=== PATIENT | male | born 1980 | race Two or more races ===

== ENCOUNTER 2019-02-03 05:13 | Emergency (ER) | payer SELFPAY ==
[~2019-02-03] VITALS: Ht 165.1 cm; Wt 65.8 kg
[2019-02-03 05:31] VITALS: BP 114/70
[2019-02-03 05:40] LABS: BILIRUBIN,URINE NEGATIVE (NEG); CLARITY,URINE CLEAR; COLOR,URINE YELLOW; NITRITE,URINE NEGATIVE (NEG); PROTEIN,URINE NEGATIVE (NEG-TRACE); UROBILINOGEN,URINE 0.2 mg/dL (0.2 mg/dL)
[2019-02-03] MEDS ORDERED: IBUP-985 PO (05:40)
--- NOTE | 2019-02-03 05:50 | PHYS DOC ---
Adult General Chief Complaint Chief Complaint: GROIN PAIN HPI HPI Patient is a 38 year old male presenting with groin pain 2-3 days and when he was walking no definite sugar that he knows about it feels pulled muscle in the medial aspect of his right thigh worse with walking and movement. He also does feel some pain in the back of his leg as well no dysuria no bumps or lumps in the groin Review of Systems Review of Systems Constitutional: Denies fever or chills [] Eyes: Denies change in visual acuity, redness, or eye pain [] HENT: Denies nasal congestion or sore throat [] Respiratory: Denies cough or shortness of breath [] Cardiovascular: No additional information not addressed in HPI [] GI: Denies abdominal pain, nausea, vomiting, bloody stools or diarrhea [] : Denies dysuria or hematuria [] Neurologic: Denies headache, focal weakness or sensory changes [] Endocrine: Denies polyuria or polydipsia [] All other systems were reviewed and found to be within normal limits, except as documented in this note. Current Medications Current Medications Current Medications Medications (Trade) Dose Ordered Sig/Christopher Start Time Stop Time Status Last Admin Dose Admin Ketorolac Tromethamine (Toradol 30mg Vial) 30 mg 1X ONCE 02/03/19 05:45 02/03/19 05:46 UNV Physical Exam Physical Exam Constitutional: Well developed, well nourished, no acute distress, non-toxic appearance. [] HENT: Normocephalic, atraumatic, bilateral external ears normal, oropharynx moist, no oral exudates, nose normal. [] Eyes: PERRLA, EOMI, conjunctiva normal, no discharge. [] Neck: Normal range of motion, no tenderness, supple, no stridor. [] Pulmonary: Normal respiratory effort no increased work of breathing no obvious chest wall trauma Abdomen: Bowel sounds normal, soft, no tenderness, no masses, no pulsatile masses. [] Skin: Warm, dry, no erythema, no rash. [] Back: No tenderness, no CVA tenderness. [] Extremities: There is some [id number] tenderness in the medial upper thigh area no obvious redness no fluctuance no obvious pneumonia was identified pain is reproduced with range of motion of the area appears to be a groin strain clinically. No hernia was identified Neurologic: Alert and oriented X 3, normal motor function, normal sensory function, no focal deficits noted. [] Psychologic: Affect normal, judgement normal, mood normal. [] Current Patient Data Vital Signs Vitals normal see nurse's note EKG EKG [] Radiology/Procedures Radiology/Procedures [] Course & Med Decision Making Course & Med Decision Making Pertinent Labs and Imaging studies reviewed. (See chart for details) []Appears to be a groin strain urinalysis is currently pending clinically he had symptomatic reproduction of symptoms with palpation of the medial groin area just below the inguinal ligament testicles are normal Try an anti-inflammatory return precautions discussed Dragon Disclaimer Dragon Disclaimer This electronic medical record was generated, in whole or in part, using a voice recognition dictation system. Departure Departure Impression: Primary Impression: Groin strain Disposition: 01 HOME, SELF-CARE Condition: STABLE Referrals: NO PCP (PCP) Patient Instructions: Groin Strain Scripts Ibuprofen (Ibuprofen) 600 Mg Tablet 600 MG PO TID PRN for PAIN, #20 TAB Prov: JOCELYN SLAUGHTER MD 02/03/19 JOCELYN SLAUGHTER MD Feb 03, 2019 05:50
[2019-02-03 05:59] LABS: BACTERIA,URINE 0 /HPF (0-FEW); RBC,URINE 0 /HPF (0-2); SQUAMOUS EPITHELIAL CELL,UR OCC /LPF; WBC,URINE OCC /HPF (0-4)
[2019-02-03] MEDS ORDERED: KETOROLAC 30 MG/ML VIAL. IM ONE (06:15)
== END 2019-02-03 06:15 | disposition home or self-care (01) ==
LOC: ER 05:13
DX: S39.011A Strain of muscle, fascia and tendon of abdomen, initial encounter (principal); M79.651 Pain in right thigh; M54.9 Dorsalgia, unspecified; X58.XXXA Exposure to other specified factors, initial encounter; Y93.01 Activity, walking, marching and hiking; Y92.89 Other specified places as the place of occurrence of the external cause; Y99.8 Other external cause status
CPT/HCPCS: 81001; 96372; 99283; J1885